=== PATIENT | female | born 1960 | race African-American/Black ===

== ENCOUNTER → 2020-06-26 | Outpatient (CLI) | payer MEDICARE ==
[~2020-06-26] MED LIST: ALDACTAZIDE 251 EACH; BREO ELLIPTA 21 EACH INH; BUSPIRONE HCL15 MG PO; FLUOXETINE HCL20 MG PO; HYDRALAZINE HCL10 MG PO; INCRUSE ELLI62.5 MCG INH; LEVOTHYROXINE100 MC1 PO; LOSARTAN POTAS100 MG PO; MELOXICAM7.5 MG PO; METOPROLOL SUCC25 MG PO; MINOXIDIL2.5 MG PO; OMEPRAZOLE40 MG PO; PRAVACHOL20 MG PO; PROAIR HFA INH8.5 GM INH; SPIRONOLACTONE25 MG PO
[2020-06-26 13:00] LABS: BASOPHILS % 0.5 % (0.0-1.0); EOSINOPHILS # (AUTO) 0.1 (0.0-0.4); EOSINOPHILS % 1.5 % (0.0-6.0); HEMATOCRIT 38.8 % (34.2-44.1); LYMPHOCYTES # (AUTO) 2.7 (1.0-3.2); LYMPHOCYTES % 34.7 % (18.0-39.1); MEAN CORPUSCULAR HEMOGLOBIN 31.2 pg (28-32); MEAN CORPUSCULAR HGB CONC 33.5 g/dL (31-35); MONOCYTES # (AUTO) 0.5 (0.2-0.8); MONOCYTES % 6.9 % (4.4-11.3); NEUTROPHILS # (AUTO) 4.4 (2.1-6.9); NEUTROPHILS % 56.1 % (38.7-80.0); PLATELET COUNT 400 x10e3/uL (140-360); RED BLOOD COUNT 4.17 x10e6/uL (3.6-5.1); RED CELL DISTRIBUTION WIDTH 12.8 % (11.7-14.4)
[2020-06-26 13:47] LABS: ANION GAP 11.8 mmol/L (8-16); CALCIUM 9.8 mg/dL (8.4-10.2); CREATININE, SERUM 1.36 mg/dL (0.57-1.11); POTASSIUM 3.8 mmol/L (3.5-5.1)
== END ==
LOC: DX 06:12 → EDSTATUS 07-01 10:30
PROVIDERS: ATTEND Specialist
DX: Z01.812 Encounter for preprocedural laboratory examination (principal); Z20.828 Contact with and (suspected) exposure to other viral communicable diseases; Z01.818 Encounter for other preprocedural examination; S83.241A Other tear of medial meniscus, current injury, right knee, initial encounter
CPT/HCPCS: 36415; 71046; 80048; 85025; 93005; U0002

== ENCOUNTER → 2020-08-26 | Day surgery (SDC) | payer MEDICARE ==
[2020-08-24 10:39] LABS: BASOPHILS % 0.4 % (0.0-1.0); EOSINOPHILS # (AUTO) 0.1 (0.0-0.4); EOSINOPHILS % 1.8 % (0.0-6.0); HEMOGLOBIN 12.9 g/dL (12.0-16.0); LYMPHOCYTES # (AUTO) 2.2 (1.0-3.2); LYMPHOCYTES % 32.2 % (18.0-39.1); MEAN CORPUSCULAR HEMOGLOBIN 31.2 pg (28-32); MEAN CORPUSCULAR HGB CONC 33.9 g/dL (31-35); MONOCYTES # (AUTO) 0.4 (0.2-0.8); MONOCYTES % 6.4 % (4.4-11.3); NEUTROPHILS % 59.1 % (38.7-80.0); PLATELET COUNT 345 x10e3/uL (140-360); RED BLOOD COUNT 4.13 x10e6/uL (3.6-5.1); RED CELL DISTRIBUTION WIDTH 12.5 % (11.7-14.4)
[2020-08-24 10:58] LABS: CALCIUM 9.4 mg/dL (8.4-10.2); CREATININE, SERUM 1.29 mg/dL (0.57-1.11)
[~2020-08-26] MED LIST changes: +BUPIVACAINE 0.5%/EPI 30 ML SDV INJ ONE; +CEFAZOLIN SOD 1 GM/NS 50ML 100 ML IV ONE; +DEXAMETHASONE SOD PHOS INJ 4 MG/ML VIAL ONE; +EPHEDRINE SULFATE INJ 50 MG/ML VIAL ONE; +FENTANYL CITRATE/PF 100MCG/2 ML INJ ONE; +LIDOCAINE HCL 2% JELLY 5 ML TUBE ONE; +LIDOCAINE HCL 2% LOCAL INJ 5 ML SDV VIAL INJ ONE; +MIDAZOLAM HCL 2 MG/2 ML VIAL ONE; +ONDANSETRON HCL INJ 2MG/ML 2ML 2 MG/ML VIAL ONE; +PROPOFOL IV EMULSION 10 MG/ML 20 ML VIAL ONE; +SEVOFLURANE INHAL SOLN 250 ML PEN BTL ONE
[2020-08-26 10:15] VITALS: BP 129/78
== END | disposition home or self-care (01) ==
LOC: OR 05:52
PROVIDERS: ATTEND Specialist
DX: S83.221A Peripheral tear of medial meniscus, current injury, right knee, initial encounter (principal); M17.11 Unilateral primary osteoarthritis, right knee; M18.11 Unilateral primary osteoarthritis of first carpometacarpal joint, right hand; I10 Essential (primary) hypertension; K76.9 Liver disease, unspecified; N28.9 Disorder of kidney and ureter, unspecified; Z88.8 Allergy status to other drugs, medicaments and biological substances; E03.9 Hypothyroidism, unspecified; J45.909 Unspecified asthma, uncomplicated; Z01.812 Encounter for preprocedural laboratory examination; Z20.822 Contact with and (suspected) exposure to COVID-19
CPT/HCPCS: 29881; 36415; 80048; 85025; J0690; J1100; J2001 ×2; J2250; J2405; J2704; J3010; U0002